=== PATIENT | male | born 1955 | race Caucasian/White ===

== ENCOUNTER 2019-10-03 13:02 | Outpatient (CLI) | payer BC ==
[2019-10-03 14:39] LABS: BASOPHILS % (AUTO) 0.9 % (0-1); EOSINOPHILS # (AUTO) 0.1 X10'3 (0-0.9); EOSINOPHILS % (AUTO) 3.4 % (0-6); LYMPHOCYTES # (AUTO) 1.4 X10'3 (1.1-4.8); LYMPHOCYTES % (AUTO) 32.5 % (21-51); MEAN CORPUSCULAR HEMOGLOBIN 31.2 PG (27.0-31.0); MEAN CORPUSCULAR HGB CONC 33.9 g/dL (33.0-36.5); MEAN CORPUSCULAR VOLUME 92.2 FL (78-98); MEAN PLATELET VOLUME 8.4 FL (7.4-10.4); MONOCYTES # (AUTO) 0.5 X10'3 (0-0.9); MONOCYTES % (AUTO) 11.6 % (2-12); NEUTROPHILS # (AUTO) 2.2 X10'3 (1.8-7.7); NEUTROPHILS % (AUTO) 51.6 % (42-75); PRE OP HEMATOCRIT 44.8 % (42.0-52.0); PRE OP HEMOGLOBIN 15.2 g/dL (14.0-17.9); PRE OP PLATELET COUNT 283 X10'3 (140-440); RED BLOOD COUNT 4.86 X10'6 (4.70-6.10); RED CELL DISTRIBUTION WIDTH 13.3 % (11.5-14.5)
[2019-10-03 14:51] LABS: PRE OP PROTIME 10.8 SECONDS (9.0-12.0)
[2019-10-03 14:56] LABS: ALBUMIN 4.2 G/DL (3.4-5.0); ALBUMIN/GLOBULIN RATIO 1.1 (1.1-1.5); ALKALINE PHOSPHATASE 80 IU/L (46-116); BLOOD UREA NITROGEN 14 MG/DL (7-18); BUN/CREATININE RATIO 15.1 (5.4-32.0); CALCIUM 8.9 MG/DL (8.5-10.1); CHLORIDE 105 MMOL/L (99-107); CREATININE 0.93 MG/DL (0.60-1.10); PRE OP ALT 32 U/L (30-65); PRE OP ANION GAP 7 (8-16); PRE OP AST 26 U/L (10-37); PRE OP BILIRUB, TOTAL 0.7 MG/DL (0.0-1.0); PRE OP GLUCOSE 92 MG/DL (70-104); PRE OP POTASSIUM 4.1 MMOL/L (3.4-5.1); PRE OP SODIUM 141 MMOL/L (135-145); TOTAL CARBON DIOXIDE 29.3 MMOL/L (24-32); TOTAL PROTEIN 7.9 G/DL (6.4-8.2); eGFR 82 ML/MIN
[2019-10-03] MEDS ORDERED: UBID200C18 PO (15:18)
[2019-10-03] MEDS ORDERED: GLUC-95 PO (15:18)
[2019-10-03] MEDS ORDERED: ASPI-529 PO (15:18)
[2019-10-03] MEDS ORDERED: RED600CA2 PO (15:18)
[2019-10-03] MEDS ORDERED: OMEP40CA13 PO (15:18)
[2019-10-03] MEDS ORDERED: FLAX100031 PO (15:18)
[2019-10-03] MEDS ORDERED: SAW450CA7 PO (15:18)
[2019-10-03] MEDS ORDERED: RESV1TAB2 PO (15:18)
[2019-10-03] MEDS ORDERED: CINN500C16 PO (15:21)
[2019-10-03] MEDS ORDERED: OMEG-15 PO (15:21)
[2019-10-03] MEDS ORDERED: CIDE300T3 PO (15:21)
== END 2019-10-03 23:59 | disposition home or self-care (01) ==
LOC: PRE-OP 13:02 → EDSTATUS 10-17 09:15
PROVIDERS: ATTEND Orthopaedic Surgery
DX: Z01.818 Encounter for other preprocedural examination (principal); M16.11 Unilateral primary osteoarthritis, right hip; Z88.0 Allergy status to penicillin
CPT/HCPCS: 36415; 71046; 80053; 85025; 85610; 85730; 86885; 86900; 86901; 87081; 93005

== ENCOUNTER 2019-12-19 10:04 | Inpatient (IN) | payer BC ==
[2019-12-12 15:53] LABS: BASOPHILS % (AUTO) 0.5 % (0-1); EOSINOPHILS # (AUTO) 0.1 X10'3 (0-0.9); EOSINOPHILS % (AUTO) 1.9 % (0-6); LYMPHOCYTES # (AUTO) 1.6 X10'3 (1.1-4.8); LYMPHOCYTES % (AUTO) 32.5 % (21-51); MEAN CORPUSCULAR HEMOGLOBIN 31.9 PG (27.0-31.0); MEAN CORPUSCULAR VOLUME 93.8 FL (78-98); MEAN PLATELET VOLUME 8.5 FL (7.4-10.4); MONOCYTES # (AUTO) 0.4 X10'3 (0-0.9); MONOCYTES % (AUTO) 9.1 % (2-12); NEUTROPHILS # (AUTO) 2.8 X10'3 (1.8-7.7); PRE OP HEMATOCRIT 46.6 % (42.0-52.0); PRE OP HEMOGLOBIN 15.8 g/dL (14.0-17.9); PRE OP PLATELET COUNT 276 X10'3 (140-440); RED BLOOD COUNT 4.96 X10'6 (4.70-6.10); RED CELL DISTRIBUTION WIDTH 12.9 % (11.5-14.5)
[2019-12-12 16:01] LABS: ALBUMIN 4.2 G/DL (3.4-5.0); ALBUMIN/GLOBULIN RATIO 1.2 (1.1-1.5); ALKALINE PHOSPHATASE 77 IU/L (46-116); BLOOD UREA NITROGEN 13 MG/DL (7-18); BUN/CREATININE RATIO 12.6 (5.4-32.0); CHLORIDE 105 MMOL/L (99-107); CREATININE 1.03 MG/DL (0.60-1.10); PRE OP ALT 30 U/L (30-65); PRE OP ANION GAP 7 (8-16); PRE OP AST 20 U/L (10-37); PRE OP BILIRUB, TOTAL 0.5 MG/DL (0.0-1.0); PRE OP GLUCOSE 93 MG/DL (70-104); PRE OP SODIUM 141 MMOL/L (135-145); TOTAL PROTEIN 7.7 G/DL (6.4-8.2); eGFR 73 ML/MIN
[2019-12-12 16:04] LABS: PRE OP PROTIME 10.3 SECONDS (9.0-12.0)
[2019-12-12 16:13] LABS: CLARITY,URINE CLEAR (Clear); COLOR,URINE YELLOW (Yellow); GLUCOSE, URINE NEGATIVE (Neg); KETONES,URINE NEGATIVE (Neg); LEUKOCYTE ESTERASE ,URINE NEGATIVE (Neg); NITRITES, URINE NEGATIVE (Neg); OCCULT BLOOD,URINE TRACE-INTACT (Neg); PROTEIN,URINE NEGATIVE (Neg); UROBILINOGEN,URINE 0.2 E.U/dL (0.2-1.0)
[2019-12-12 16:17] LABS: UA COLLECTION TYPE VOIDED
[2019-12-12 16:32] LABS: RBC,URINE 0-2 /HPF (0-2); WBC,URINE NONE SEEN /HPF (0-4)
[2019-12-12 16:33] LABS: BACTERIA,URINE NONE SEEN /HPF (Neg); SQUAMOUS EPITHELIAL CELL,UR NONE SEEN /LPF (FEW)
[2019-12-19] VITALS (29 sets, daily range): BP systolic 83–143; BP diastolic 47–96
[~2019-12-19] VITALS: Ht 167.6 cm; Wt 83.0 kg
[~2019-12-19 10:04] MED LIST: OMEP40CA13 PO; acetaminophen 325mg tablet PO ONE; ceFAZolin 2gm in dextrose, iso 50 ML IV ONE; celeCOXIB 100mg capsule PO ONE; famotidine 20mg tablet PO ONE; gabapentin 300mg capsule PO ONE; metoclopramide 5 mg/ml inj IV ONE; oxyCODONE SR 10mg (sust. release) tab -2 tabs (20mg) PO ONE; ringers solution, lacted 1,000 ML IV SCH; tranexamic acid inj. 1,000 MG in normal saline 100 ML IV ONE; vancomycin 1,500 MG in NS 500ml IV soln IV ONE
[2019-12-19] MEDS ORDERED: ringers solution, lacted 1,000 ML IV SCH (10:29)
[2019-12-19] MEDS ORDERED: labetalol 20mg/4ml (5mg/ml) syringe IV PRN (10:30)
[2019-12-19] MEDS ORDERED: fentaNYL/PF 50MCG/1 ML 2ML syringe IV PRN ×2 (10:30)
[2019-12-19] MEDS ORDERED: hydrALAZINE 20mg/ml inj. IV PRN (10:30)
[2019-12-19] MEDS ORDERED: ondansetron/PF 4mg/2ml inj IV PRN ×2 (10:30→14:45)
[2019-12-19] MEDS ORDERED: morphine 2 MG/ML inj. syringe IV PRN (10:30)
[2019-12-19] MEDS ORDERED: morphine 4 MG/ML inj SYRINge IV PRN (10:30)
[2019-12-19] MEDS ORDERED: ROPIVAcaine 0.5% (5mg/ml) 30ml vial ONE ×2 (11:49→12:29)
[2019-12-19] MEDS ORDERED: vancomycin 1,000mg inj ONE ×2 (11:49→12:29)
[2019-12-19] MEDS ORDERED: ketorolac trometh. 30mg/ml inj. ONE ×2 (11:49→12:29)
[2019-12-19] MEDS ORDERED: fentaNYL/PF 50MCG/1 ML 2ML syringe ONE (11:57)
[2019-12-19] MEDS ORDERED: epiNEPHrine 1 mg/ml inj ONE (12:29)
[2019-12-19] MEDS ORDERED: cloNIDine hcl/PF 100mcg/ml inj ONE (12:29)
[2019-12-19] MEDS ORDERED: MIDAZolam 5mg/5ml vial ONE (12:41)
[2019-12-19] MEDS ORDERED: propofol inj 20 ML IV ONE (13:11)
[2019-12-19] MEDS ORDERED: LIDOcaine 2% (20mg/ml) 5ml vial ONE (13:15)
--- NOTE | 2019-12-19 13:58 | NUR ---
Received from OR via BED, accompanied by Anesthesiologist DR HIGGINS and report given by Anesthesiologist. PT DROWSY, PT W/SAB, UNABLE TO MOVE BILAT LE'S, DERMATOME LEVEL L-2, RIGHT HIP W/SMALL GAUZE SOWMYA SIMMONS, LALO DRAIN W/GREEN LIGHT ILLUMINATION. Addendum: 12/19/19 at 1658 by Talia Griffin RN Amended: Links added.
[2019-12-19] MEDS ORDERED: acetaminophen 325mg tablet PO PRN (14:45)
[2019-12-19] MEDS ORDERED: magnesium hydroxide 30ml (MOM) UD suspension PO PRN (14:45)
[2019-12-19] MEDS ORDERED: HYDROmorphone inj. 0.5 MG/0.5 ML DISP.SYRIN IV PRN (14:45)
[2019-12-19] MEDS ORDERED: HYDROmorphone 1 mg/ml syringe IV PRN (14:45)
[2019-12-19] MEDS ORDERED: bisacodyl 10mg suppository rectal RC PRN (14:45)
[2019-12-19] MEDS ORDERED: diphenhydrAMINE 25mg capsule PO PRN ×2 (14:45)
[2019-12-19] MEDS ORDERED: tranexamic acid inj. 830 MG in normal saline 100ml IV soln 100 ML IV ONE (17:00)
--- NOTE | 2019-12-19 17:08 | NUR ---
Report called to receiving nurse. Transferred via BED, 1 BAG OF Belongings AND GLASSES SENT W/PT TO ROOM 4015B, BLL, CALL LIGHT GIVEN, SIDE RAILS UP X 2, RECEIVING RN NOTIFIED OF PTS ARRIVAL. Special Issues communicated to receiving nurse. YES. Addendum: 12/19/19 at 1726 by Talia Griffin RN Amended: Links added.
--- NOTE | 2019-12-19 18:11 | NUR ---
gave report to faith rubio
--- NOTE | 2019-12-19 18:15 | NUR ---
RECEIVED REPORT FROM CLARITA NICHOLS AND ASSUMED PATIENT CARE
[2019-12-19] MEDS: cefazolin/dext.iso 2gm/50ml 50 ML IV SCH (19:24)
[2019-12-19] MEDS ORDERED: VANCOMYCIN 1,500MG inj. 1,500 MG in normal saline 500ml IV soln 500 ML IV SCH (20:00)
[2019-12-19] MEDS: potassium cl 20mEq in 1/2 NS 1,000 ML IV SCH ×2 (20:55→22:44)
[2019-12-19] MEDS: HYDROcodone/acetaminophen 10/325mg tab PO PRN (20:56)
[2019-12-19] MEDS: ascorbic acid 500mg tablet PO SCH (20:56)
[2019-12-19] MEDS: sennosides 8.6mg tablet PO SCH (20:56)
[2019-12-19] MEDS: gabapentin 300mg capsule PO SCH (20:56)
[2019-12-20] MEDS: HYDROcodone/acetaminophen 10/325mg tab PO PRN ×4 (01:20→20:35)
[2019-12-20] MEDS: cefazolin/dext.iso 2gm/50ml 50 ML IV SCH (01:21)
[2019-12-20 02:00] VITALS: BP 98/56
[2019-12-20] MEDS ORDERED: scopolamine 1.5mg patch.TD72 TD ONE (04:50)
[2019-12-20 06:00] VITALS: BP 105/66
[2019-12-20] MEDS: potassium cl 20mEq in 1/2 NS 1,000 ML IV SCH ×3 (06:44→22:44)
[2019-12-20 07:16] LABS: ANION GAP 5 (8-16); CHLORIDE 105 MMOL/L (99-107); POTASSIUM 4.3 MMOL/L (3.5-5.1); SODIUM 139 MMOL/L (135-145); TOTAL CARBON DIOXIDE 28.8 MMOL/L (24-32)
[2019-12-20 07:25] LABS: BASOPHILS % (AUTO) 0.4 % (0-1); EOSINOPHILS % (AUTO) 0.7 % (0-6); HEMATOCRIT 38.8 % (42.0-52.0); HEMOGLOBIN 12.8 g/dl (14.0-17.9); LYMPHOCYTES # (AUTO) 1.1 X10'3 (1.1-4.8); LYMPHOCYTES % (AUTO) 16.2 % (21-51); MEAN CORPUSCULAR HEMOGLOBIN 31.2 PG (27.0-31.0); MEAN CORPUSCULAR VOLUME 94.5 FL (78-98); MEAN PLATELET VOLUME 8.7 FL (7.4-10.4); MONOCYTES # (AUTO) 0.7 X10'3 (0-0.9); MONOCYTES % (AUTO) 9.6 % (2-12); NEUTROPHILS # (AUTO) 5.2 X10'3 (1.8-7.7); NEUTROPHILS % (AUTO) 73.1 % (42-75); PLATELET COUNT 229 X10'3 (140-440); RED CELL DISTRIBUTION WIDTH 12.8 % (11.5-14.5); WHITE BLOOD COUNT 7.1 X10'3 (4.5-11.0)
[2019-12-20] MEDS: pantoprazole 40mg Tablet.DR PO SCH (07:47)
[2019-12-20] MEDS: gabapentin 300mg capsule PO SCH ×3 (07:48→20:18)
[2019-12-20] MEDS: aspirin 325mg tablet PO SCH (07:48)
[2019-12-20] MEDS: ascorbic acid 500mg tablet PO SCH ×2 (07:48→20:19)
[2019-12-20] MEDS: multivitamins, therapeutics tablet PO SCH (07:48)
[2019-12-20 10:00] VITALS: BP 103/69
--- NOTE | 2019-12-20 12:36 | NUR ---
Joint replacement consult: Pt seen by EMILY for written/verbal high protein ed w/ RD contact information provided. Pt requests double eggs at breakfast and double meats BIDLD; dietary notified. Addendum: 12/20/19 at [address] Amended: Links added.
[2019-12-20 14:00] VITALS: BP 104/62
[2019-12-20 17:00] VITALS: BP 103/52
--- NOTE | 2019-12-20 18:25 | NUR ---
Problems reprioritized. Patient report given, questions answered & plan of care reviewed with Jocelynn NICHOLS.
[2019-12-20] MEDS: sennosides 8.6mg tablet PO SCH (20:18)
[2019-12-21] MEDS: HYDROcodone/acetaminophen 10/325mg tab PO PRN ×3 (00:02→09:32)
[2019-12-21] MEDS: potassium cl 20mEq in 1/2 NS 1,000 ML IV SCH (01:56)
[2019-12-21 05:02] VITALS: BP 116/59
[2019-12-21 06:00] VITALS: BP 111/69
--- NOTE | 2019-12-21 06:21 | NUR ---
Problems reprioritized. Patient report given, questions answered & plan of care reviewed with Karen NICHOLS.
[2019-12-21 06:49] LABS: BASOPHILS % (AUTO) 0.3 % (0-1); EOSINOPHILS # (AUTO) 0.1 X10'3 (0-0.9); EOSINOPHILS % (AUTO) 2.2 % (0-6); HEMATOCRIT 37.5 % (42.0-52.0); HEMOGLOBIN 12.6 g/dl (14.0-17.9); LYMPHOCYTES # (AUTO) 1.2 X10'3 (1.1-4.8); LYMPHOCYTES % (AUTO) 19.6 % (21-51); MEAN CORPUSCULAR HEMOGLOBIN 31.7 PG (27.0-31.0); MEAN CORPUSCULAR HGB CONC 33.6 g/dL (33.0-36.5); MEAN CORPUSCULAR VOLUME 94.1 FL (78-98); MEAN PLATELET VOLUME 8.7 FL (7.4-10.4); MONOCYTES # (AUTO) 0.7 X10'3 (0-0.9); NEUTROPHILS # (AUTO) 4.1 X10'3 (1.8-7.7); NEUTROPHILS % (AUTO) 65.9 % (42-75); PLATELET COUNT 217 X10'3 (140-440); RED BLOOD COUNT 3.99 X10'6 (4.70-6.10); RED CELL DISTRIBUTION WIDTH 13.1 % (11.5-14.5); WHITE BLOOD COUNT 6.2 X10'3 (4.5-11.0)
[2019-12-21] MEDS: pantoprazole 40mg Tablet.DR PO SCH (07:57)
[2019-12-21] MEDS: ascorbic acid 500mg tablet PO SCH (07:57)
[2019-12-21] MEDS: aspirin 325mg tablet PO SCH (07:57)
[2019-12-21] MEDS: gabapentin 300mg capsule PO SCH (07:57)
[2019-12-21] MEDS: multivitamins, therapeutics tablet PO SCH (07:57)
[2019-12-21] MEDS ORDERED: ASPI-1 PO (08:13)
--- NOTE | 2019-12-21 10:16 | NUR ---
Patient ready for discharge. Belongings gathered and sent home with patient. Post op instructions given to patient. PIV removed canula intact. Island dressing provided.
== END 2019-12-21 09:55 | disposition home or self-care (01) | DRG 470 ==
LOC: PAS 10:04 → ORTHO 4S 14:44 → OBSVTOIN 12-20 12:30
PROVIDERS: ADMIT Orthopaedic Surgery; ATTEND Orthopaedic Surgery
PROC: 0SR90JZ Replacement of Right Hip Joint with Synthetic Substitute, Open Approach (ICD-10-PCS; principal; 2019-12-19 12:29)
DX: M16.11 Unilateral primary osteoarthritis, right hip (principal); D62 Acute posthemorrhagic anemia; Z79.82 Long term (current) use of aspirin; K21.9 Gastro-esophageal reflux disease without esophagitis
CPT/HCPCS: Z7506; Z7508; 36415; 72170; 80051; 80053; 81001; 82948; 85025; 85610; 85730; 86885; 86900; 86901; 87081; 97110; 97112; 97116; 97161; 97530; A4615; A7000; C1776; G0378; J0171; J0735; J1170; J1885; J2001; J2250; J2405; J2704; J2765; J2795; J3010; J3370; J3480; J7040; J7120

== ENCOUNTER 2025-04-09 22:02 | Emergency (ER) | payer MEDICARE, BC ==
[~2025-04-09] VITALS: Ht 167.6 cm; Wt 82.0 kg
[~2025-04-09 22:02] MED LIST changes: +ASPI-1 PO; -OMEP40CA13 PO; +OMEP40CA21 PO; -acetaminophen 325mg tablet PO ONE; -ceFAZolin 2gm in dextrose, iso 50 ML IV ONE; -celeCOXIB 100mg capsule PO ONE; -famotidine 20mg tablet PO ONE; -gabapentin 300mg capsule PO ONE; -metoclopramide 5 mg/ml inj IV ONE; -oxyCODONE SR 10mg (sust. release) tab -2 tabs (20mg) PO ONE; -ringers solution, lacted 1,000 ML IV SCH; -tranexamic acid inj. 1,000 MG in normal saline 100 ML IV ONE; -vancomycin 1,500 MG in NS 500ml IV soln IV ONE
--- NOTE | 2025-04-09 22:12 | ELECTROCARDIOGRAPH REPORT ---
[facility] Test Date: 2025-04-09 Test Time: 22:07:34 Pat Name: SARAH ELY Department: EMERGENCY ROOM [id number] Room: Gender: M Gold Stamper: : 1955 Requested By: SRIRAM SHUKLA Order Number: [id number] Reading MD: Measurements Intervals [place] Rate: 76 P: 27 [place]: 77 QRS: 88 QRSD: 94 T: 49 QT: 403 QTc: 454 Interpretive Statements Sinus rhythm Atrial premature complex Short IL interval Borderline right axis deviation RSR' in V1 or V2, probably normal variant Baseline wander in lead(s) I,aVR,aVL,V1,V2 Please click the below link to view image of tracing.
--- NOTE | 2025-04-09 22:15 | Physician Documentation ---
History of Present Illness ~ Stated Complaint: N/V Time Seen by MD: 22:10 HPI Patient presents to the emergency room with nausea and vomiting since 5:00 p.m.. No sick contacts. No diarrhea. He states that he had previous heart attack that presented this way therefore he came in to be evaluated. He denies any chest pain. Patient has received 4 mg of IV Zofran EN route in his feeling better. 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 Medication Reconciliation Allergies: Coded Allergies: Penicillins (Unverified Allergy, Intermediate, RASH , 04/09/25) Scheduled Aspirin (Aspirin), 325 MG PO Q24H@0830 Omeprazole (Prilosec), 20 MG PO DAILY, (Reported) Review of Systems ROS All review of systems negative except as per HPI Physical Exam Physical Exam General: Patient is awake, alert, oriented x4 in no acute distress Head: Normocephalic and atraumatic. Eyes: Conjunctival normal. EOMI. PERRL. ENT: Mucous membranes moist. Neck: Supple, trachea is midline. Chest: Clear to auscultation bilaterally without rales, rhonchi, or wheezes. There is no accessory muscle use or retractions. Cardiac: RRR without murmurs, gallops, or rubs. Abd: Soft, nondistended, nontender, with normoactive bowel sounds. No guarding, rebound, or rigidity. Progress Results/Orders Results/Orders Orders - VJ FONG MD Urinalysis, Cult If Indicated (04/09/25 22:10) Chest,Single View (04/09/25 22:20) Monitor (04/09/25 22:10) Saline Lock (04/09/25 22:10) Oxygen (04/09/25 22:10) Hs Troponin I W Calculations (04/10/25 01:10) Straight Cath For Urine Sample (04/09/25 22:10) Covid19 Binax Poc Result Entry (04/09/25 23:48) Completed Orders - VJ FONG MD Cbc/Diff (04/09/25 22:10) Lipase (04/09/25 22:10) CMP (04/09/25 22:10) Chest,Single View (04/09/25 22:20) PBNP (04/09/25 22:10) Electrocardiogram (04/09/25 22:10) Hs Troponin I W Calculations (04/09/25 22:10) Hs Troponin I W Calculations (04/10/25 00:10) Ondansetron Inj. (Zofran 4mg/2ml Vial) (04/09/25 22:15) Metoclopramide Inj (Reglan Inj) (04/09/25 22:55) Diphenhydramine Inj (Benadryl Inj.) (04/09/25 22:55) Normal Saline 1000ml (0.9% Sodium Chlori (04/09/25 23:25) Ketorolac Trometh 15mg/Ml Vial (Toradol (04/09/25 23:50) Acetaminophen 325mg Tablet (Tylenol Tabl (04/09/25 23:50) Medications Received in ER Medications (Trade) Dose Ordered Sig/Rhonda Route PRN Reason Start Time Stop Time Status Last Admin Dose Admin (Zofran 4mg/2ml vial) 4 mg ONCE ONCE IV 04/09/25 22:15 04/09/25 22:44 DC 04/09/25 22:47 4 MG (Reglan inj) 10 mg ONCE ONCE IV 04/09/25 22:55 04/09/25 22:56 DC 04/09/25 23:23 10 MG (Benadryl inj.) 25 mg ONCE ONCE IV 04/09/25 22:55 04/09/25 22:56 DC 04/09/25 23:24 25 MG Sodium Chloride 1,000 ml @ 1,000 mls/hr ONCE ONCE IV 04/09/25 23:25 04/10/25 00:24 DC 04/09/25 23:59 1,000 MLS/HR (Toradol injection) 15 mg ONCE ONCE IV 04/09/25 23:50 04/09/25 23:55 DC 04/09/25 23:59 15 MG (Tylenol tablet) 650 mg ONCE ONCE PO 04/09/25 23:50 04/09/25 23:51 DC 04/09/25 23:59 650 MG Vital Signs 04/09/25 04/09/25 04/09/25 22:22 23:44 23:44 Temp 98.3 Pulse 72 95 Resp 17 16 16 B/P (MAP) 144/69 106/47 (66) Pulse Ox 99 96 O2 Flow Rate 0 Laboratory Tests Test 04/09/25 22:17 04/10/25 00:23 04/10/25 00:29 White Blood Count 8.9 Red Blood Count 5.10 Hemoglobin 16.3 Hematocrit 48.1 Mean Corpuscular Volume 94.2 Mean Corpuscular Hemoglobin 31.9 H Mean Corpuscular Hemoglobin Concent 33.8 Red Cell Distribution Width 13.1 Platelet Count 226 Mean Platelet Volume 8.3 Neutrophils (%) (Auto) 89.3 H Lymphocytes (%) (Auto) 4.2 L Monocytes (%) (Auto) 5.1 Eosinophils (%) (Auto) 1.1 Basophils (%) (Auto) 0.3 Neutrophils # (Auto) 8.0 H Lymphocytes # (Auto) 0.4 L Monocytes # (Auto) 0.5 Eosinophils # (Auto) 0.1 Basophils # (Auto) 0.0 CBC Comment Sodium Level 141 Potassium Level 3.8 Chloride Level 103 Carbon Dioxide Level 28.8 Anion Gap 9 Blood Urea Nitrogen 11 Creatinine 1.04 Estimated GFR/1.73 m2 71 BUN/Creatinine Ratio 10.6 Glucose Level 113 H Calcium Level 9.3 Total Bilirubin 1.4 H Aspartate Amino Transf (AST/SGOT) 36 Alanine Aminotransferase (ALT/SGPT) 37 Alkaline Phosphatase 72 Troponin I High Sensitivity 8 11 Pro-B-Type Natriuretic Peptide 83 Total Protein 7.2 Albumin 4.1 Globulin 3.1 Albumin/Globulin Ratio 1.3 Lipase 35 Chemistry Comments SARS-CoV-2 Antigen (Rapid) Negative Troponin I High Sens Percent Delta 37 Troponin I Hi Sens Absolute Change 3 EKG/XRAY/CT/US/VASC/MRI EKG : Additional Comment EKG interpreted by myself shows time of 09/07/2006, rate 76, sinus rhythm, normal axis, no ST changes Medical Decision Making Findings Patient presented to the emergency room with vomiting. Differentials include but are not limited to viral syndrome, dehydration, electrolyte disturbances, acute kidney injury therefore emergent labs ordered. Labs reassuring for no major pathologic derangements. Patient is responding to therapy. COVID negative. Given constellation of symptoms I do feel he is suffering from viral syndrome we will treat accordingly. ER precautions discussed Departure Disposition: HOME / SELF CARE / HOMELESS Impression: Primary Impression: Viral gastritis Condition: Improved Discharge Instructions: Gastritis, Adult Referrals: NO PRIMARY CARE PROVIDER (PCP) Prescriptions Ondansetron 8mg ODT (Ondansetron Odt) 8 Mg Tab.rapdis 1 TAB PO Q6H for nausea/vomiting for 3 Days, #12 TAB 0 Refills Prov: VJ FONG MD 04/10/25 Education Educated: Patient Educated regarding: diagnosis, treatment, need for follow up Signature Scribe Signature: No scribe Attestation: The note accurately reflects work and decisions made by me.Vj Fong MD 04/10/25 01:21 VJ FONG MD Apr 09, 2025 22:15
[2025-04-09 22:25] LABS: MEAN PLATELET VOLUME 8.3 FL (7.4-10.4); RED CELL DISTRIBUTION WIDTH 13.1 % (11.5-14.5)
--- NOTE | 2025-04-09 22:34 | RADIOLOGY REPORT ---
EXAM: DI CHEST,SINGLE VIEW TECHNIQUE: Single frontal chest radiograph CLINICAL HISTORY: CP COMPARISON: None FINDINGS/IMPRESSION: The lungs are clear. The cardiomediastinal silhouette is unremarkable. No pleural effusion or pneumothorax. No acute osseous abnormality. Median sternotomy changes are noted.
[2025-04-09 22:39] LABS: CREATININE 1.04 MG/DL (0.60-1.10); TOTAL CARBON DIOXIDE 28.8 MMOL/L (24-32); eCRCL 62 ML/MIN; eGFR 71 ML/MIN
[2025-04-09 22:45] LABS: PRO BRAIN NATRIURETIC PEPTIDE 83 PG/ML (0-125)
[2025-04-09] MEDS: ondansetron/PF 4mg/2ml inj IV ONE (22:47)
[2025-04-09] MEDS: metoclopramide 5 mg/ml inj IV ONE (23:23)
[2025-04-09 23:44] VITALS: BP 106/47; PULSE 95; RESP 16; O2SAT 96
[2025-04-09] MEDS: normal saline 1000ml 1,000 ML IV ONE (23:59)
[2025-04-09] MEDS: ketorolac trometh 15mg/ml vial 15 MG/ML ML IV ONE (23:59)
[2025-04-10] MEDS ORDERED: ONDA-245 PO (01:21)
[2025-04-10 01:51] VITALS: TEMP 98.3
== END 2025-04-10 01:52 | disposition home or self-care (01) ==
LOC: ER 22:03
DX: A08.4 Viral intestinal infection, unspecified (principal); R06.02 Shortness of breath; Z88.0 Allergy status to penicillin; Z20.822 Contact with and (suspected) exposure to COVID-19; Z79.82 Long term (current) use of aspirin
CPT/HCPCS: 36415; 71045; 80053; 83690; 83880; 84484; 85025; 87811; 93005; 96361; 96374; 96375; 99285; J1200; J1885; J2405; J2765; J7030